=== PATIENT | female | born 1985 | race Caucasian/White ===

== ENCOUNTER 2025-05-06 02:50 | Emergency (ER) | payer MEDICAID ==
[~2025-05-06] VITALS: Ht 154.9 cm; Wt 61.2 kg
[2025-05-06] MEDS ORDERED: IBUPROFEN 400 MG TABLET ONE (03:38)
[2025-05-06] MEDS: IBUPROFEN 400 MG TABLET PO ONE (03:40)
[2025-05-06 05:08] VITALS: BP 118/75; TEMP 98; O2SAT 99
== END 2025-05-06 05:09 | disposition home or self-care (01) ==
LOC: ER 02:52
DX: J02.8 Acute pharyngitis due to other specified organisms (principal); B97.89 Other viral agents as the cause of diseases classified elsewhere; Z60.2 Problems related to living alone
CPT/HCPCS: 86403-TC; 87070-TC